=== PATIENT | female | born 1945 | race Caucasian/White ===

== ENCOUNTER → 2020-07-20 | Outpatient (CLI) | payer MEDICARE | LOC: EMI 07:55 | DX: S83.412A Sprain of medial collateral ligament of left knee, initial encounter (principal); S86.912A Strain of unspecified muscle(s) and tendon(s) at lower leg level, left leg, initial encounter | CPT/HCPCS: 73721 ==

== ENCOUNTER → 2021-12-25 | Outpatient (CLI) | payer MEDICARE ==
[~2021-12-25] VITALS: Ht 167.6 cm; Wt 107.0 kg
== END ==
LOC: EROP 09:57
DX: U07.1 COVID-19 (principal)
CPT/HCPCS: M0222; Q0222